=== PATIENT | female | born 1985 | race Caucasian/White ===

== ENCOUNTER 2019-09-14 05:00 | Day surgery (SDC) | payer OTHER ==
[2019-09-12 10:36] LABS: BASOPHILS 0.6 % (0-2); EOSINOPHILS 2.2 % (0-7); HEMATOCRIT 37.6 % (36.0-48.0); HEMOGLOBIN 11.2 g/dL (12-16); IMMATURE GRANULOCYTES 0.2 % (0-5); LYMPHOCYTES 34.1 % (15-50); MCH 24.9 pg (26.0-34.0); MCHC 29.8 g/dL (31.0-37.0); MCV 83.6 fL (80.0-100.0); MEAN PLATELET VOLUME 8.7 fL (7.4-10.4); MONOCYTES 5.6 % (2-11); NEUTROPHILS 57.3 % (40-80); WBC 6.2 10x3/uL (4.8-10.8)
[2019-09-12 10:45] LABS: PLATELET COUNT 257 10x3/uL (130-400)
[~2019-09-14] VITALS: Ht 160 cm; Wt 70.3 kg
--- NOTE | ~2019-09-14 | OP ---
PATIENT NAME: MP LEVI MEDICAL RECORD: [id number] :87 LOCATION:D.[facility] ADMISSION DATE: SURGEON: KADE RUSSELL MD DATE OF OPERATION: 09/14/2019 PREOPERATIVE DIAGNOSES: 1. Pelvic pain. 2. Menorrhagia. POSTOPERATIVE DIAGNOSES: 1. Severe levorotation of the uterus. 2. 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 PROCEDURE: Diagnostic laparoscopy and a diagnostic hysteroscopy, D&C. SURGEON: Kade Russell MD ESTIMATED BLOOD LOSS: Minimal. ANESTHESIA: General endotracheal. INTRAVENOUS FLUIDS: Per anesthesia record. HYSTEROSCOPIC FLUID LOSS: Less than 50 cc of 0.9 normal saline. FINDINGS: 1. Severe levorotation of the uterus and adhesive disease involving the omentum and anterior abdominal wall. 2. Adhesions involving the uterus and anterior abdominal wall. 3. Grossly normal-appearing endometrial canal. COMPLICATIONS: None apparent. SPECIMENS: Endometrial curettings. PROCEDURE IN DETAIL: The patient taken to the operating room where general anesthesia was achieved without difficulty. The patient was prepped and draped in normal sterile fashion in the dorsal lithotomy position in the [facility]. Her bladder was drained of approximately 100 cc of clear yellow urine and a sponge stick was placed into the vagina for uterine elevation. Attention was then turned to the umbilicus where a 5-mm incision was made and a 5-mm bladeless trocar was used to attempt to enter the peritoneal space. Several areas were noted to be missing due to previous abdominal surgery. Intraperitoneal fat was identified; however, no clear space could be noted. The 5-mm trocar was then removed and the infraumbilical incision was extended to approximately 1 cm. At this point, a Elsa clamp was used to grasp the fascial layer times 2. This was tented up and entered sharply using the Metzenbaum scissors. The peritoneum was entered bluntly using a finger and the Karsten trocar was then placed into the incision and intraperitoneal placement was confirmed with the laparoscope. The Karsten trocar was then anchored using 0 Vicryl suture. Multiple adhesions were noted involving the anterior abdominal wall and omentum obscuring visualization. A second trocar was placed in the midline lower uterine segment, severe levorotation of the uterus was noted. These trocars were then removed and the patient had been desufflated. The skin OPERATIVE REPORT [id number] MP LEVI was repaired with 3-0 Vicryl inferiorly. The fascia was repaired in the infraumbilical incision with 0 Vicryl suture. The skin was repaired with 3-0 Vicryl in an interrupted fashion. Attention was then turned to the vagina. The sponge stick was removed and the Graves speculum was placed in the vagina. The anterior lip of the cervix was grasped with a single-tooth tenaculum. The patient was dilated to approximately 4-5 mm, at which point the hysteroscope was introduced. Due to the severe angle of rotation of the uterus, it was felt at this time that a NovaSure ablation was not safe as the scope was at a greater than 45 degree angle to enter the endometrial canal. The scope was then removed. A curettage was performed for sampling and the tenaculum was then removed. The patient tolerated the procedure well, transferred to postanesthesia recovery stable without incident. TRANSINT:[id number] Voice Confirmation ID: [id number] DOCUMENT ID: [id number] KADE RUSSELL MD CC: [id number] DICTATION DATE: 09/17/19699 INTEGRITY SPECIALIST: 09/17/19 0852 [facility] 09/14/[id number] [place] [address]
[~2019-09-14 05:00] MED LIST: ACETAMINOPHEN500 M1 PO; DOXYCYCLINE HY100 M2 PO; FLAGYL500 MG PO; FOLATE0.4 MG PO; HYDROCODON-ACE1 EAC7 PO; IBUPROFEN100 MG/5 M PO; IBUPROFEN600 MG PO; MOTRIN600 MG PO; ORTHO TRI-7 DAYSX 3 PO; PERCOCET 5-3251 TAB PO; PERCOCET 5/3251 TA1 PO; PRENATAL COMPLE1 TAB PO; ZITHROMAX500 MG PO; folic acid
--- NOTE | 2019-09-14 06:08 | NUR ---
DR MCGRATH NOTIFIED AND REVIEWED PT's BEHAVIOR AND ASSESSMENT [id number]. PT IS A LOW RISK PER DR MCGRATH. DR MCGRATH STATED TO GIVE RESOURCES TO PT AT TIME OF DISCHARGE. NO FURTHER ORDERS AT THIS TIME. RESOURCESES REVIEWED WITH PT AND SHE VERBALIZED UNDERSTANDING.
[2019-09-14 06:15] VITALS: BP 126/84; BMI 27.5
[2019-09-14 07:19] VITALS: Ht 160 cm; Wt 70.3 kg
--- NOTE | 2019-09-14 10:37 | NUR ---
1015-AMBULATED TO RESTROOM AND VOIDED WITHOUT COMPLICATIONS. NO DISTRESS. PAIN 03/23. BANDAID X 2 TO ABD CDI. ABD SOFT NON DISTENDED. REPORTS LIGHT BLEEDING.
--- NOTE | 2019-09-14 10:38 | NUR ---
1033-S.NO DISTRESS. PAIN /10. SLIGHT SPOTTING FROM VAGINAL AREA. BANDAIDS X 2 TO ABD CDI. REMOVED IV WITH CATH INTACT,DISPOSED INTO SHARPS, COVERED WITH GUAZE,SECURED WITH MEDIPORE TAPE. REVIEWED POST OP INSTRUCTIONS AND PT WILL CALL FOR A 1 WEEK FOLLOW UP.
--- NOTE | 2019-09-14 10:40 | NUR ---
1040-PT DRESSED. NO DISTRESS. VSS. BANDAIDS TO ABD CDI. NO N/V. ESCORTED OUT VIA W/C WITH MOTHER AWAITING TO DRIVE HOME
== END 2019-09-14 10:40 | disposition home or self-care (01) ==
LOC: D.OPS 05:00 → D.PAN 07:30 → D.OPS 10:40
PROVIDERS: ATTEND Obstetrics & Gynecology
DX: R10.2 Pelvic and perineal pain (principal); N92.0 Excessive and frequent menstruation with regular cycle

== ENCOUNTER 2019-09-25 11:37 | Inpatient (IN) | payer OTHER ==
[~2019-09-25] VITALS: Ht 160 cm; Wt 70.5 kg
--- NOTE | ~2019-09-25 | OP ---
PATIENT NAME: MP LEVI MEDICAL RECORD: [id number] :87 LOCATION:[id number] ADMISSION DATE:10/12/19 SURGEON: KADE RUSSELL MD DATE OF OPERATION: 10/12/2019 PREOPERATIVE DIAGNOSES: 1. Pelvic pain. 2. Pelvic adhesions. POSTOPERATIVE DIAGNOSES: 1. Pelvic pain. 2. Pelvic adhesions. PROCEDURE: Total abdominal hysterectomy and lysis of adhesions. SURGEON: Kade Russell MD ANESTHESIA: General endotracheal. INTRAVENOUS FLUIDS: Per anesthesia record. ESTIMATED BLOOD LOSS: 300 cc. FINDINGS: 1. Adhesive disease involving the anterior uterus, bladder and anterior abdominal wall. 2. Grossly normal-appearing ovaries bilaterally. 3. Minimal remaining fallopian tube, status post previous history of tubal sterilization. DESCRIPTION OF PROCEDURE: The patient taken to the operating room where general anesthesia was achieved without difficulty. The patient was then prepped and draped in normal sterile fashion in the dorsal supine position. A Ray catheter had been placed and was draining freely. The patient was prepped and draped and a repeat Pfannenstiel skin incision was made, extended downward to the underlying subcutaneous fat to the level of the fascia. Due to known history of anterior abdominal wall adhesions, very careful dissection was performed. Previous had the rectus muscles plicated and careful dissection was performed to find the midline separation of the rectus muscles. The peritoneum was identified and entered sharply at the superior aspect of the incision. Careful dissection was then performed downward under direct visualization of the bladder, the rectus muscles and excising the anterior peritoneum. The uterus was identified and delivered upward through the incision. Elsa clamps were used to pull the uterus at the cornua. Attention was then turned to the bilateral round ligaments, which were clamped times 2 with Elsa clamps, cut and suture ligated with 0 Vicryl. The bladder flap was dissected laterally to expose the uterine vessels and curved Chetna clamps were placed. A defect was then made in the bilateral posterior leaf of the broad ligament. Curved Chetna clamps were then placed across the uteroovarian ligaments times 2. These were then cut and suture ligated with 0 Vicryl. The uterine vessels were then skeletonized and clamped with curved Chetna clamps times 2. Careful dissection of the bladder was performed until the bladder was free of the lower uterine segment and cervix. Straight Chetna clamps were then used to clamp the cardinal ligaments. These were cut and suture ligated with 0 Vicryl suture. Curved Chetna clamps were placed across uterosacral ligament and OPERATIVE REPORT [id number] MP LEVI the uterus with cervix was removed using the Db scissors. The vaginal cuff was then repaired with 0 Vicryl in interrupted [id number] fashion with good hemostasis noted. Attention was then turned to the adnexa were minimal tubal material was found to be removed due to the patient's previous history of tubal sterilization. The pelvis was thoroughly irrigated and all surgical sites were found to be hemostatic. Counts were correct times 2 for needles, sponges, and instruments. The rectus fascia was repaired with 0 loop PDS times 1 and the skin repaired with elke. The patient tolerated procedure well, transferred to postanesthesia recovery stable without incident. TRANSINT:[id number] Voice Confirmation ID: [id number] DOCUMENT ID: [id number] KADE RUSSELL MD CC: [id number] DICTATION DATE: 10/15/19655 MARKETING INFORMATION ANALYST: 10/15/19 1724 [facility] 10/14/19 [facility] [address] [id number]
[2019-10-10 10:20] LABS: BASOPHILS 0.6 % (0-2); EOSINOPHILS 2.7 % (0-7); HEMATOCRIT 35.3 % (36.0-48.0); HEMOGLOBIN 10.8 g/dL (12-16); IMMATURE GRANULOCYTES 0.2 % (0-5); LYMPHOCYTES 31.3 % (15-50); MCH 25.5 pg (26.0-34.0); MCHC 30.6 g/dL (31.0-37.0); MCV 83.5 fL (80.0-100.0); MEAN PLATELET VOLUME 8.4 fL (7.4-10.4); MONOCYTES 5.8 % (2-11); NEUTROPHILS 59.4 % (40-80); PLATELET COUNT 239 10x3/uL (130-400); RBC 4.23 10x6/uL (4.00-5.40); RDW 15.1 % (11.5-14.5); WBC 5.2 10x3/uL (4.8-10.8)
[2019-10-10 10:33] LABS: APTT 27.6 SECONDS (22.8-39.4); INR 0.96 (0.85-1.17); PROTIME 12.7 SECONDS (11.6-15.0)
[2019-10-10 10:36] LABS: CALC OSMOLALITY 277 mosm/kg (275-300); CALCIUM 9.1 mg/dL (8.5-10.1); CARBON DIOXIDE 29.5 mmol/L (21.0-32.0); CHLORIDE - SERUM 104 mmol/L (98-107); CREATININE - SERUM 0.9 mg/dL (0.6-1.3); GLUCOSE 99 mg/dL (74-106); POTASSIUM - SERUM 3.9 mmol/L (3.5-5.1); SODIUM 140 mmol/L (136-145); UREA NITROGEN 9 mg/dL (7-18); eGFR NON AFRICAN AMERICAN 77 mL/min (90-120)
[2019-10-12] VITALS (15 sets, daily range): BP systolic 107–147; BP diastolic 55–78; Ht 160 cm; Wt 70.5 kg
[2019-10-12] MEDS ORDERED: ACETAMINOPHEN500 M1 PO (06:09)
[2019-10-12 06:32] LABS: HCG URINE NEGATIVE (NEGATIVE)
--- NOTE | 2019-10-12 10:48 | NUR ---
1048 OPA DISCONTINUED. PATIENT AROUSABLE AND MAINTAINING PATENT AIRWAY
--- NOTE | 2019-10-12 11:24 | NUR ---
RECEIVED PT FROM VIA BED TO ROOM 1276. BED LOCKED AND PLACED IN LOW POSITION. VSS. PT DROWSY. WAKES UPON VERBAL STIMULATION. C/O INCISIONAL PAIN OF "9" ON 0-10 PAIN SCALE. HRRR WITHOUT AUDIBLE MURMUR. BBS CLEAR. BSX4. ABDOMEN SOFT/NON-DISTENDED. ABDOMINAL DRESSING DRY WITH DRAINAGE CIRCLED AND NOTED. NO VAG BLEEDING OR DISCHARGE NOTED. NEG HOMANS' SIGN. PPP. NO EDEMA NOTED TO BLE. DUNBAR TO GRAVITY DRAINING DARK, BLUE URINE. PIV OF LR INFUSING AT 125 ML/HR. SITE CLEAR TO RIGHT HAND. SR UP X 2. CALL LIGHT IN REACH.
--- NOTE | 2019-10-12 11:29 | NUR ---
DILAUDID RESEARCH TEST ENGINE EVALUATOR STARTED ORDERED. PT INSTRUCTED ON USE OF BUTTON AND MEDICATION. WILL REINFORCE NEEDED DUE TO PT DROWSY AT THIS TIME.
--- NOTE | 2019-10-12 12:35 | NUR ---
DR GILLETTE NOTIFIED OF URINE OUTPUT. ORDER RECEIVED.
--- NOTE | 2019-10-12 13:50 | NUR ---
DR GILLETTE NOTIFIED OF URINE OUTPUT. ORDER RECEIVED TO INCREASE IV RATE TO 150 ML/HR.
--- NOTE | 2019-10-12 15:00 | NUR ---
PT LYING TO RIGHT SIDE IN BED. PT LESS DROWSY. PT PROVIDED LEMON-DIOMEDE SODA. DENIES NEEDS OR C/O.
--- NOTE | 2019-10-12 16:48 | NUR ---
PT SITTING UPRIGHT IN BED. AWAKE. STATES 2 FINGERS ON EACH HAND FEEL NUMB. STATES IMPROVED FROM EARLIER. STATES NOTIFIED ANESTHESIA WHEN THEY VISITED PT EARLIER. NO VAGINAL BLEEDING NOTED. ABDOMINAL DRESSING WITH NO NEW DRAINAGE. FRESH ICE PACK TO INCISION.
--- NOTE | 2019-10-12 16:50 | NUR ---
PT SAT-100%. O2 OFF WITH O2 SAT-100%.
--- NOTE | 2019-10-12 17:16 | NUR ---
PT C/O INCISIONAL PAIN OF "6" ON 0-10 PAIN SCALE. TORADOL 30 MG GIVEN SIVP OVER 2 MINUTES. PT INSTRUCTED ON MED. VERBALIZES UNDERSTANDING.
--- NOTE | 2019-10-12 17:24 | NUR ---
PT C/O NAUSEA. ZOFRAN 4 MG GIVEN SIVP OVER 2 MINUTES. PT INSTRUCTED ON MED. VERBALIZES UNDERSTANDING.
--- NOTE | 2019-10-12 17:28 | NUR ---
PT DROWSY, SAT 92%. O2 BACK ON AT 2LITERS PER N/C.
[2019-10-12 17:32] LABS: BASOPHILS 0.1 % (0-2); EOSINOPHILS 0 % (0-7); HEMATOCRIT 32.3 % (36.0-48.0); HEMOGLOBIN 9.8 g/dL (12-16); IMMATURE GRANULOCYTES 0.1 % (0-5); LYMPHOCYTES 6.1 % (15-50); MCH 25.4 pg (26.0-34.0); MCHC 30.3 g/dL (31.0-37.0); MCV 83.7 fL (80.0-100.0); MEAN PLATELET VOLUME 8.6 fL (7.4-10.4); MONOCYTES 2.6 % (2-11); NEUTROPHILS 91.1 % (40-80); PLATELET COUNT 250 10x3/uL (130-400); RBC 3.86 10x6/uL (4.00-5.40); RDW 14.9 % (11.5-14.5); WBC 9.5 10x3/uL (4.8-10.8)
[2019-10-12 17:50] LABS: ANION GAP 9.6 mmol/L (8-16); CALCIUM 8.6 mg/dL (8.5-10.1); CARBON DIOXIDE 28.5 mmol/L (21.0-32.0); POTASSIUM - SERUM 4.1 mmol/L (3.5-5.1)
--- NOTE | 2019-10-12 19:08 | NUR ---
report received from luann lopez to assume pt care
--- NOTE | 2019-10-12 19:50 | NUR ---
REPORT FROM OLMAN GRESHAM
--- NOTE | 2019-10-12 20:00 | NUR ---
PT MOVED TO ROOM 1257. SHE HAD A ALVARO TODAY. HER HEART SOUNDS ARE WNL. LUNGS SOUNDS ARE CLEAR IN ALL 4 QUADS. I DID NOT HEAR ANY BOWEL SOUNDS. SHE IS MANUEL CLEAR LIQUID DIET. SHE HAS A DUNBAR CATHETER THAT IS DRAINING BLUE COLORED URINE. PT INCISION HAS A LITTLE SEROUS DRAINAGE AND AREA ARE MARKED. SCD'S ARE ON BOTH LEGS. PT IS WEARING O2 B/C SOMEONE TOLD HER THAT HER SATS DROPPED WHEN SHE WAS SLEEPING. SHE IS SATING 100% WITH 2 L VIA NC. I HAD HER TAKE THE O2 OFF WHEN WE DID VS AND SHE DROPPED TO 97% SHE AND HER SO WANT TO KEEP IT ON. PT USES HER INCENTIVE SPIROMETER EVERY HOUR FOR 10 BREATHES. SHE GETS THE METER TO AT LEAST 2000 EVERY TIME. SHE ASKED FOR A CUP OF ICE AND THAT WAS DELIVERED.
--- NOTE | 2019-10-12 22:00 | NUR ---
PT CALLED ME TO ROOM TO C/O OF ITCHING.
--- NOTE | 2019-10-12 22:15 | NUR ---
SPOKE WITH DR. JONES. ORDERS NOTED.
--- NOTE | 2019-10-12 22:55 | NUR ---
BENADRYL 25 MG GIVEN PO FOR ITCHING.
[2019-10-13 00:10] VITALS: BP 121/80
--- NOTE | 2019-10-13 00:10 | NUR ---
VS TAKEN AND CHARTED. PT IS STILL ITCHING A LITTLE BUT OVERALL ITS BETTER. SHE WAS SLEEPING WELL BEFORE SHE WAKED UP FOR VITALS. HER O2 WAS OFF HER FACE AND I ASKED HER TO LEAVE IT OFF TO SEE WHAT HER SATS DID WITHOUT THE O2 I DOCUMENTED 95% BUT IT DROPPED DOWN TO 90% BEFORE I TOOK THE MONITOR OFF. HER O2 IS ON AT 2L VIA NC. SHE IS USING HER INSPECTOR HAIRSPRING TRUING PUMP NEEDED. URINE CONT TO DRAIN WELL AND IS STILL BLUE.
--- NOTE | 2019-10-13 01:02 | NUR ---
PT ASKED FOR ICE PACK TO BE REFILLED. THIS WAS DONE FOR HER.
--- NOTE | 2019-10-13 01:56 | NUR ---
TORADOL WAS GIVEN IV. PT WAS C/O PAIN WITH HER HUMAN RESOURCES PSYCHOLOGIST PUMP SO THIS WAS GIVEN. PT HAS TURNED ONTO HER LEFT SIDE. A PILLOW WAS PUT BEHING HER BACK. PT IS VERY COMPLIANT WITH USE OF HER INSENTIVE SPIROMETER. SHE HAS DONE IT EVERY HOUR THAT SHE IS AWAKE 10 TIMES.
--- NOTE | 2019-10-13 02:00 | NUR ---
RESTING QUIETLY WITHOUT C/O.
[2019-10-13 04:00] VITALS: BP 99/56
--- NOTE | 2019-10-13 04:00 | NUR ---
PT AWAKE FOR VS. SHE IS JUST WAKING UP AND IS HURTING. SHE PUSHED HER TOOL KEEPER BUTTON FOR PAIN CONTROL. SHE TURNED ON HER BACK AFTER BEING ON HER LEFT SIDE. HER INCISION DRESSING HAS NO NEW DRAINAGE. PT SAT UP TO COUGH. SHE GIVES A GREAT EFFORT OF THIS. NEW ICE PACK GIVEN FOR HER INCISION. DUNBAR CATHETER EMPTIED WITH 1900 ML OUT. PT IV CONT AT 150ML/HOUR.
--- NOTE | 2019-10-13 04:59 | NUR ---
DR. GILLETTE HERE TO SEE PT.
[2019-10-13 05:50] LABS: BASOPHILS 0.1 % (0-2); EOSINOPHILS 0.5 % (0-7); HEMATOCRIT 27.1 % (36.0-48.0); HEMOGLOBIN 8.2 g/dL (12-16); IMMATURE GRANULOCYTES 0.3 % (0-5); MCH 25.4 pg (26.0-34.0); MCHC 30.3 g/dL (31.0-37.0); MCV 83.9 fL (80.0-100.0); MEAN PLATELET VOLUME 8.7 fL (7.4-10.4); MONOCYTES 7.7 % (2-11); NEUTROPHILS 70.4 % (40-80); RBC 3.23 10x6/uL (4.00-5.40); WBC 7.7 10x3/uL (4.8-10.8)
[2019-10-13 05:57] LABS: PLATELET COUNT 194 10x3/uL (130-400)
[2019-10-13 06:04] LABS: CALC OSMOLALITY 271 mosm/kg (275-300); CALCIUM 8.3 mg/dL (8.5-10.1); CARBON DIOXIDE 29.7 mmol/L (21.0-32.0); CHLORIDE - SERUM 104 mmol/L (98-107); CREATININE - SERUM 0.9 mg/dL (0.6-1.3); GLUCOSE 96 mg/dL (74-106); POTASSIUM - SERUM 3.9 mmol/L (3.5-5.1); SODIUM 137 mmol/L (136-145); UREA NITROGEN 8 mg/dL (7-18); eGFR NON AFRICAN AMERICAN 77 mL/min (90-120)
--- NOTE | 2019-10-13 06:32 | NUR ---
PT RESTING IN HER ROOM. CONT. FURNACE CLEANER PUMP AND DUNBAR FOR NOW. NO C/O OR NEEDS AT THIS TIME.
--- NOTE | 2019-10-13 08:01 | NUR ---
TORADOL WAS GIVEN IV FOR PAIN. PT HAS ONCE AGAIN STARTED TO ITCH. WILL ASK DAY RN TO ADDRESS WITH DR. GILLETTE WHEN SHE TALKS TO HIM ABOUT LAB RESULTS.
[2019-10-13 08:08] VITALS: BP 114/60
--- NOTE | 2019-10-13 08:08 | NUR ---
ASSESSMENT COMPLETE. SEE FLOW SHEET. PATIENT A&O X4. VSS. RATES PAIN 7/10 IN ABDOMEN. C/O ITCHING. SCD'S ON BILAT. IV RIGHT HAND WNL. BIKINI LINE INCISION WITH ASHKAN INTACT. NO DRAINAGE NOTED. FLOEY CATH WITH CLEAR YELLOW URINE. PATIENT TOLERATING CLEAR LIQUID DIET AND REQUEST TO MOVE TO REGULAR DIET. SIG OTHER IN ROOM. WILL PAGE DR GILLETTE FOR REQUEST, ITCHING AND CURRENT LAB RESULTS. CALL LIGHT IN REACH, SIDE RAILS UP X2.
--- NOTE | 2019-10-13 09:00 | NUR ---
DR GILLETTE CALLED WITH H&H AND CREATINE RESULTS, REQUEST FOR REG DIET AND ITCHING. ORDERS TO REPEAT HEMAGLOBIN AT 12PM, ADVANCE TO REG DIET, STOP DILAUDID ASSISTANT BRANCH OPERATIONS MANAGER AND START NARCO 10 EVERY 4 HOURS, MOTRIN 600 EVERY 6 HOURS. IF ITCHING CONTINUES AFTER STOPPING DILAUDID ASSISTANT BRANCH OPERATIONS MANAGER MAY GIVE BENADRYL 25MG PO ONCE.
--- NOTE | 2019-10-13 09:20 | NUR ---
ROUNDING WITH PATIENT. PATIENT SITTING UP IN BED EATING BREAKFEST. ADVISED PATIENT OF NEW ORDERS WITH DR. GILLETTE. PATIENT AND SIG OTHER VERBALIZED UNDERSTANDING AND AGREEMENT. ADVISED PATIENT TO NOT USE HOSTED SERVICES ANALYST--WILL COME DISCONTINUE IT. PATIENT REQUEST NEW ICE PACK. HER OTHER ONE LEAKED. NEW ICE PACK PROVIDED. PATIENT DENIES NEEDS AT THIS TIME. CALL LIGHT IN REACH. SIDE RAILS UP X 2.
--- NOTE | 2019-10-13 10:15 | NUR ---
NEWS DEPARTMENT INTERN DISCONTINUED AT THIS TIME. PATIENT RATES PAIN /. NARCO AND MOTRIN GIVEN PER ORDER. PATIENT STATES ITCHING HAS GOTTEN WORSE AND WOULD LIKE THE BENADRY. SHE COMPLAINS OF HAVING DIFFICULTY SWALLOWING FOOD. DENIES SORE THROAT OR DIFFICULTY BREATHING. BENADRYL GIVEN PER ORDER-WILL CONTINUE TO MONITOR. PATIENT ABLE TO SWALLOW PO MEDS WITHOUT DIFFICULTY. SIG OTHER IN ROOM. SCD'S ON BILATERALY. CALL LIGHT IN REACH. SIDE RAILS UP X2.
--- NOTE | 2019-10-13 11:00 | NUR ---
ROUNDING WITH PATIENT. PATIENT STATES SHE IS SLEEPY AND FEELS COLD. STILL HURTING BUT WANTS TO TRY TO TAKE A NAP. ICE PACK TO ABDOMEN. SCD'S ON BILAT. PATIENT DENIES NEEDS AT THIS TIME. CALL LIGHT IN REACH. SIDE RAILS UP X2.
--- NOTE | 2019-10-13 11:29 | NUR ---
ROUNDING WITH PATIENT. VSS. PULSE OX IS 95% ON ROOM AIR. PATIENT STATES ITCHING IS STARTING TO FEEL BETTER. PAIN IS STILL 6/10. 1600CC OF CLEAR YELLOW URINE EMPTIED OUT OF DUNBAR CATH. PATIENT STATES SHE WOULD LIKE THE DUNBAR CATH OUT SOON SHE CAN. WILL TALK TO PROVIDER WHEN CALLING PM LAB RESULTS. SIG OTHER IN ROOM. SCD'S ON BILAT, CALL LIGHT IN REACH, SIDE RAILS UP X2.
[2019-10-13 11:33] VITALS: BP 125/55
--- NOTE | 2019-10-13 12:22 | NUR ---
ROUDNING WITH PATIENT. STATES ITCHING CONTINUES TO IMPROVE. PAIN DOWN TO 3/10 WITH EXCEPTION OF HER DUNBAR CATH-REQUESTING TO HAVE THAT PULLED. WILL ASK DR. JONES WHEN CALLING WITH PM LAB RESULTS. ICE PACK LEAKING-GAVE HER A NEW ICE PACK. PATIENT DENIES NEEDS AT THIS TIME. STATES SHE IS STARTING TO FEEL BETTER. SIG OTHER IN ROOM. CALL LIGHT IN REACH, SIDE RAILS UP X 2.
--- NOTE | 2019-10-13 13:20 | NUR ---
pt calls out recreational sports director light, to room. pt states "it feels like i started bleeding down there, could you change my pads?". perineum noted to be dry, no bleeding noted to vaginal area or on bed sheets, which there was no pad underneath her. pericare done with warm wet washcloths, new chux placed underneath her, with peripad placed for comfort. ocasio cath continues to drain yellow urine. pt c/o discomfort with ocasio cath, ocasio cath in proper position attached to leg plate connector, patent, draining yellow urine. abdomen palpates soft, no bladder distention noted. elke c/d/i to low transverse incision. new ice pack placed over gown to incision. fresh ice water served to pt in her [facility] mug. pt also using incentive spirometer at this time. pt denies all other needs. srup x2, call light and phone within reach.
--- NOTE | 2019-10-13 14:04 | NUR ---
DR JONES PHONED WITH REPORT ON CBC, PT REPORTS OF PAIN BEING BETTER, AND DESIRES TO HAVE DUNBAR CATH REMOVED. ORDER RECIEVED TO D/C DUNBAR AND ADVANCE AND NORMALIZE PT.
--- NOTE | 2019-10-13 15:30 | NUR ---
to pt's room. plan of care to normalize pt discussed. pt agrees. ocasio cath removed with 1500 mls yellow urine emptied. peripad placed for comfort. pt served large ice water, and pt's so in room as he has also brought her a large sonic drink. pt denies n/v, sob or difficulty breathing. o2 nc removed. iv sl. new ice pack placed over gown to incision. pt requests sandwich to eat, served. srup x2, call light and phone within reach.
--- NOTE | 2019-10-13 16:00 | NUR ---
pt calls out padder cushion light, pt has taken off scd's and is ambulatory to br with assistance from so. pt voided 150 mls light yellow urine. pt assisted back to bed. sr up x2, call light and phone within reach. see emar for all meds adm by this rn. large mug of ice water served. so remains at bedside. sr up x2, call light and phone within reach. pt denies all other needs at this time.
[2019-10-13 16:15] VITALS: BP 127/67
--- NOTE | 2019-10-13 18:15 | NUR ---
to pt's room, pt is sitting up on the side of bed, putting on makeup. pt denies all other needs. srup x2, call light and phone within reach. pt states "i've been up to the bathroom 2 more times, since the first time, but now i'm sleepy and would like to rest". pt denies all other needs. so at bedside. srup x2, call light and phone within reach.
--- NOTE | 2019-10-13 18:20 | NUR ---
REPORT GIVEN TO Margie BOWLING RN.
--- NOTE | 2019-10-13 18:30 | NUR ---
THIS RN TO ROOM FOR PT CHECK. PT LYING IN BED ON LEFT SIDE, EYES CLOSED, RESP EVEN AND UNLABORED. LIGHTS IN ROOM DIM. SRUx2, CL IN REACH. PT LEFT UNDISTURBED FOR REST.
--- NOTE | 2019-10-13 18:53 | NUR ---
REPORT TO OLMAN KINGSLEY.
[2019-10-13 19:59] VITALS: BP 103/46
--- NOTE | 2019-10-13 19:59 | NUR ---
PERCOCET ADMINISTERED PER PT REQUST. SEE EMAR.
--- NOTE | 2019-10-13 19:59 | NUR ---
SHIFT ASSESSMENT COMPLETED, SEE FLOWSHEET.
--- NOTE | 2019-10-13 20:44 | NUR ---
PATIENT UP IN BATHROOM, DENIES NEEDS, PAIN REASESSMENT COMPLETED, SEE EMAR.
--- NOTE | 2019-10-13 22:22 | NUR ---
MOTRIN ADMINISTERED AT THIS TIME PER PT REQUEST AND MD ORDERS. SEE EMAR
--- NOTE | 2019-10-14 01:35 | NUR ---
pt sleeping quietly, respirations even and non labored. no distress noted. will continue to monitor.
--- NOTE | 2019-10-14 02:45 | NUR ---
CALLED TO ROOM BY PATIENT, REQUESTING A REFILL ON HER ICE PACK. PATIENT GETTING BACK IN TO BED FROM THE BATHROOM, STATES THAT SHE FELT A LITTLE SHORT OF BREATH, O2 SAT 96%, PT USED INCENTIVE SPIROMETER WITHOUT INCIDENT AT THIS TIME. PT ENCOURAGED TO CALL WITH ANY FURTHER ISSUES OR CONCERNS. WILL CONTINUE TO MONITOR
--- NOTE | 2019-10-14 04:42 | NUR ---
pain medication administered per pt request. see emar. pt up to bathroom, complaining about feeling short of breath and gas pain. lung sounds clear bilaterally, pulse ox 100%, no distress noted per this rn. pt encouraged to use incentive spirometer, pt states that she has been. pt also encouraged to walk in the [address] to relieve the gas pain. will continue to monitor
--- NOTE | 2019-10-14 05:08 | NUR ---
ADMINISTERED SIMETHICONE 80MG TAB PO FOR GAS PAIN, SEE EMAR. PT WALKING THE HALLS NOW
--- NOTE | 2019-10-14 06:12 | NUR ---
PATIENT BACK TO ROOM FROM WALKING THE HALLS, PT VOIDING AND DENIES NEEDS AT THIS TIME. WILL CONTINUE TO MONITOR
[2019-10-14 07:45] VITALS: BP 108/64
--- NOTE | 2019-10-14 07:45 | NUR ---
RECEIVED PT SITTING UP IN BED CONSUMING BREAKFAST. VSS. HRRR WITHOUT AUDIBLE MURMUR. BBS CLEAR. BS X 4. ABDOMEN SOFT/NON-DISTENDED. ABDOMINAL INCISION WITHOUT REDNESS, SWELLING OR DRAINAGE NOTED. PT STATES HAS SCANT AMT OF PINK VAGINAL DISCHARGE WHEN WIPING. DENIES NEED TO WEAR PERIPAD. NEG HOMANS' SIGN. PPP. SLIGHT EDEMA NOTED TO ANKLES. PT STATES C/O BACK, SHOULDER AND NECK PAIN OF "5" ON 0-10 PAIN SCALE. STATES "I KNOW IT'S GAS BUILDING UP". PT STATES HAD 2 BMS ON 10/11/19. STATES HAS BM WEEKLY. PT OFFERED PRUNE JUICE COCKTAIL. PT DECLINES AT THIS TIME. SR UP X 2. CALL LIGHT IN REACH.
--- NOTE | 2019-10-14 08:51 | NUR ---
PT CALLS ON LIGHT. REQUESTS PAIN MED. THIS NURSE TO ROOM. PT STATES "I WALKED AROUND THE ROOM QUITE A BIT". C/O INCISIONAL PAIN OF "6" ON 0-10 PAIN SCALE. NORCO10/325 GIVEN PO ORDERED. PT C/O BLOATED ABDOMEN. PT REPOSITIONS SUPINE IN BED. ABDOMEN SOFT WITH MILD DISTENTION NOTED SINCE EARLIER ASSESSMENT. PT STATES ATE BREAKFAST THIS AM. MYLICON 80 MG GIVEN PO ORDERED. PT INSTRUCTED ON MEDS. VERBALIZES UNDERSTANDING.
[2019-10-14 10:04] VITALS: BP 124/83
--- NOTE | 2019-10-14 10:04 | NUR ---
PT CONSUMES 100% OF REG DIET. C/O TIGHTNESS IN CHEST, PAIN IN SHOULDERS AND BACK. VSS. PT STATES ATTEMPTED TO HAVE BM A FEW MINUTES AGO, BUT COULDN'T. PT PROVIDED HOT COFFEE. WILL NOTIFY DR JONES
--- NOTE | 2019-10-14 10:20 | NUR ---
PT LYING TO RIGHT SIDE IN BED. EYES CLOSED. RESP NON-LABORED. PT NOT DISTURBED TO ALLOW FOR REST.
--- NOTE | 2019-10-14 10:28 | NUR ---
DR JONES VISITS WITH PT. NOTIFIED OF PT C/O TIGHTNESS IN CHEST AND BACK/SHOULDER PAIN. ALSO NOTIFIED OF BP'S. ORDERS RECEIVED.
[2019-10-14 11:48] LABS: BASOPHILS 0.3 % (0-2); EOSINOPHILS 2.6 % (0-7); HEMATOCRIT 29.7 % (36.0-48.0); HEMOGLOBIN 8.7 g/dL (12-16); IMMATURE GRANULOCYTES 0.2 % (0-5); LYMPHOCYTES 23.1 % (15-50); MCH 24.9 pg (26.0-34.0); MCHC 29.3 g/dL (31.0-37.0); MCV 85.1 fL (80.0-100.0); MEAN PLATELET VOLUME 8.8 fL (7.4-10.4); NEUTROPHILS 65.8 % (40-80); PLATELET COUNT 206 10x3/uL (130-400); RBC 3.49 10x6/uL (4.00-5.40); RDW 15.3 % (11.5-14.5); WBC 6.6 10x3/uL (4.8-10.8)
--- NOTE | 2019-10-14 12:30 | NUR ---
PT AMBULATORY IN ROOM TO BR. DENIES C/O OR NEEDS. STATES PASSED SOME GAS AFTER AMBULATING IN ROOM.
--- NOTE | 2019-10-14 14:30 | NUR ---
PT ASKING ABOUT SOMETHING FOR GAS. WILL NOTIFY DR JONES.
--- NOTE | 2019-10-14 15:19 | NUR ---
DR JONES VISITS WITH PT. ORDER RECEIVED.
--- NOTE | 2019-10-14 15:22 | NUR ---
DULCOLAX SUPPOSITORY PLACED PER ORDER. PT INSTRUCTED ON MED. VERBALIZES UNDERSTANDING.
--- NOTE | 2019-10-14 16:21 | NUR ---
PT C/O ABDOMINAL PAIN OF "5-6" ON 0-10 PAIN SCALE. STATES PASSED GAS AND HAD SMALL BM. NORCO 10/325 AND MOTRIN 600 MG GIVEN PO ORDERED. PT ASKS IF DR JONES WILL LET PT GO HOME. WILL NOTIFY DR JONES.
[2019-10-14] MEDS ORDERED: HYDROCODON-ACE1 EAC7 PO (17:20)
--- NOTE | 2019-10-14 17:40 | NUR ---
PT READY FOR DISCHARGE. DISCHARGED IN STABLE CONDITION VIA WHEELCHAIR TO PRIVATE VEHICLE.
--- NOTE | 2019-10-14 17:55 | NUR ---
PT READY FOR DISCHARGE. DISCHARGED IN STABLE CONDITION VIA WHEELCHAIR TO PRIVATE VEHICLE.
== END 2019-10-14 17:55 | disposition home or self-care (01) | DRG 743 ==
LOC: D.SDCHOLD 10-12 05:40 → D.LD 10-12 05:40 → D.SDCHOLD 10-12 07:30 → D.LD 10-12 10:43
PROVIDERS: Anesthesiology; Student in an Organized Health Care Education/Training Program; ADMIT Obstetrics & Gynecology; ATTEND Obstetrics & Gynecology
PROC: 0UT90ZZ Resection of Uterus, Open Approach (ICD-10-PCS; principal; 2019-10-12 07:30)
DX: N73.6 Female pelvic peritoneal adhesions (postinfective) (principal); R10.2 Pelvic and perineal pain; D64.9 Anemia, unspecified; K59.00 Constipation, unspecified; R00.0 Tachycardia, unspecified

== ENCOUNTER → 2019-10-23 15:09 | Outpatient (CLI) | payer OTHER ==
[2019-10-12 17:34] VITALS: BMI 27.5
== END | disposition home or self-care (01) ==
LOC: D.RAD 15:09
PROVIDERS: ATTEND Obstetrics & Gynecology
DX: R10.9 Unspecified abdominal pain (principal)